=== PATIENT | male | born 1975 | race American Indian/Alaskan Native ===

== ENCOUNTER 2017-04-26 20:26 | Emergency (ER) | payer OTHER ==
[2017-04-26 20:36] VITALS: BP 158/96
[2017-04-26 21:27] LABS: Bilirubin,Urine NEG (Negative); Blood,Urine NEG (Negative); Ketones,Urine NEG (Negative); Leukocyte Esterase,Urine NEG (Negative); Mucus,Urine FEW /HPF; Nitrite,Urine NEG (Negative); Urobilinogen,Urine < 2.0 mg/dL (<2.0)
--- NOTE | 2017-04-26 23:18 | Emergency Department Report ---
ED Female HPI - General Chief complaint: Urogenital-Male Stated complaint: PENILE DISCHARGE Time Seen by Provider: 04/26/17 23:10 Source: patient Mode of arrival: Ambulatory Limitations: No Limitations - Related Data Allergies Allergy/AdvReac Type Severity Reaction Status Date / Time No Known Allergies Allergy Verified 04/26/17 20:33 ED Review of Systems ROS: Stated complaint: PENILE DISCHARGE Other details as noted in HPI ED Past Medical Hx - Past Medical History Previous Medical History?: Yes Hx Diabetes: Yes - Surgical History Past Surgical History?: No - Social History Smoking Status: Never Smoker Substance Use Type: Alcohol ED Physical Exam - General Limitations: No Limitations ED Course Vital Signs 04/26/17 20:33 Temperature 99.0 F Pulse Rate 86 Respiratory 20 Rate Blood Pressure 158/96 O2 Sat by Pulse 96 Oximetry Critical care attestation.: If time is entered above; I have spent that time in minutes in the direct care of this critically ill patient, excluding procedure time. ED Disposition Condition: Stable Referrals: PRIMARY CARE [Primary Care Provider] - 3-5 Days
--- NOTE | 2017-04-27 00:13 | Emergency Department Report ---
ED Male HPI - General Chief complaint: Urogenital-Male Stated complaint: PENILE DISCHARGE Time Seen by Provider: 04/26/17 23:10 Source: patient Mode of arrival: Ambulatory Limitations: No Limitations - History of Present Illness Initial comments: Patient here reports that he has penile discharge that is one day. He said he was having unsafe sex 2 days prior to discharge. He is discharge is yellowish and has an odor. He said it weldon when he urinated. Denies any back or abdominal pain. Denies any fever or chills. Denies any nausea or vomiting. Patient with history of diabetes. Denied any penile rash or lesions. He is requested in to be checked for gonorrhea and chlamydia and to be treated for STDs. MD Complaint: penile discharge, dysuria Onset/Timin -: days(s) Severity scale (0 -10): 0 Quality: other ( burning with urination) Worsens with: urination discharge, dysuria. denies: swelling, mass, rash, urinary retention, blood in urine, fever, nausea/vomiting, incontinence - Related Data Sexually active: Yes (unsafe sex.) Allergies Allergy/AdvReac Type Severity Reaction Status Date / Time No Known Allergies Allergy Verified 04/26/17 20:33 ED Review of Systems ROS: Stated complaint: PENILE DISCHARGE Other details as noted in HPI Comment: All other systems reviewed and negative Constitutional: denies: chills, fever ENT: denies: throat pain Respiratory: no symptoms reported Cardiovascular: denies: chest pain, palpitations, edema, syncope Gastrointestinal: denies: abdominal pain, nausea, vomiting, diarrhea Genitourinary: dysuria, discharge. denies: urgency, frequency, hematuria, testicular pain, testicular mass Musculoskeletal: denies: back pain, joint swelling, arthralgia, myalgia Skin: denies: rash Neurological: denies: headache, numbness, paresthesias, confusion, abnormal gait , vertigo ED Past Medical Hx - Past Medical History Previous Medical History?: Yes Hx Diabetes: Yes - Surgical History Past Surgical History?: No - Family History Family history: no significant - Social History Smoking Status: Never Smoker Substance Use Type: Alcohol ED Physical Exam - General Limitations: No Limitations General appearance: alert, in no apparent distress - Head Head exam: Present: atraumatic, normocephalic, normal inspection - Eye Eye exam: Present: normal appearance, PERRL, EOMI Pupils: Present: normal accommodation - ENT ENT exam: Present: normal exam, normal orophraynx, mucous membranes moist - Neck Neck exam: Present: normal inspection, full ROM. Absent: tenderness, meningismus, lymphadenopathy - Respiratory Respiratory exam: Present: normal lung sounds bilaterally. Absent: respiratory distress, chest wall tenderness - Cardiovascular Cardiovascular Exam: Present: regular rate, normal rhythm, normal heart sounds - GI/Abdominal GI/Abdominal exam: Present: soft, normal bowel sounds. Absent: distended, tenderness, guarding, rebound, rigid - Extremities Exam Extremities exam: Present: normal inspection, full ROM, normal capillary refill. Absent: tenderness, calf tenderness - Back Exam Back exam: Present: normal inspection, full ROM. Absent: tenderness, CVA tenderness (R), CVA tenderness (L), muscle spasm, paraspinal tenderness, vertebral tenderness, rash noted - Neurological Exam Neurological exam: Present: alert, oriented X3, normal gait, reflexes normal. Absent: motor sensory deficit - Psychiatric Psychiatric exam: Present: normal affect, normal mood - Skin Skin exam: Present: warm, dry, intact, normal color. Absent: rash ED Course Vital Signs 04/26/17 20:33 Temperature 99.0 F Pulse Rate 86 Respiratory 20 Rate Blood Pressure 158/96 O2 Sat by Pulse 96 Oximetry - Reevaluation(s) Reevaluation #1: 04/27/17 01:21 Patient given azithromycin 1 g by mouth, Flagyl 2 g by mouth and ceftriaxone twinges and 50 mg IM in emergency room to treat gonorrhea and chlamydia and Trichomonas. Gonorrhea and chlamydia test is pending. Urinalysis is negative for infection positive for greater than 500 glucose. ED Medical Decision Making - Lab Data Lab Results 04/26/17 Range/Units 20:42 Urine Color Yellow (Yellow) Urine Turbidity Clear (Clear) Urine pH 5.0 (5.0-7.0) Ur Specific Prim 1.025 (1.003-1.030) Urine Protein 30 mg/dl (Negative) mg/dL Urine Glucose (UA) >=500 (Negative) mg/dL Urine Ketones Neg (Negative) mg/dL Urine Blood Neg (Negative) Urine Nitrite Neg (Negative) Urine Bilirubin Neg (Negative) Urine Urobilinogen < 2.0 (<2.0) mg/dL Ur Leukocyte Esterase Neg (Negative) Urine WBC (Auto) 4.0 (0.0-6.0) /HPF Urine RBC (Auto) 5.0 (0.0-6.0) /HPF U Epithel Cells (Auto) < 1.0 (0-13.0) /HPF Urine Mucus Few /HPF Gonorrhea and chlamydia pending - Medical Decision Making D course: She had he reports penile burning and exposure to STD with discharge that smells foul. He is requested to be treated for STD and also to be tested for STD. Patient reports that he had unsafe sex 3 days ago and then he started having penile discharge. Urinalysis is negative for any urinary tract infection positive for greater than 500 units glucose and patient is a diabetic. Patient treated empirically in emergency room for Trichomonas with Flagyl 2 g by mouth, ceftriaxone 250 mg IM for gonorrhea and for chlamydia is azithromycin 1 g by mouth. I discussed with him that he should refrain from having sexual activity for the next 2 weeks and to follow-up at [facility] in 7-10 days for repeat testing. I discussed with him that he needs to refrain from drinking all all as all call when makes it Flagyl that he took for STD Anthony cause nausea and vomiting. Patient voiced understanding of discharge instructions and discharged home. Critical care attestation.: If time is entered above; I have spent that time in minutes in the direct care of this critically ill patient, excluding procedure time. ED Disposition Clinical Impression: Concern about STD in male without diagnosis, Penile discharge, Dysuria, Glucosuria Disposition: [id number] TO HOME OR SELFCARE Is pt being admited?: No Does the pt Need Aspirin: No Condition: Stable Instructions: Sexually Transmitted Diseases (ED), Safe Sex (ED) Additional Instructions: Please inform your sex partner that you have penile discharge and that you're treated in emergency room for sexually transmitted disease Please ensure that your blood sugars stay within normal range as you are spilling glucose and urine . These follow-up with your primary care physician to manage chronic diabetes please practice safe sex Go to [facility] in 7-10 days to have repeat STD testing.. He is refrain from drinking all call for the next 7 days As medication given for STD can cause nausea and vomiting You were treated for gonorrhea, chlamydia and trichomonas in emergency room. If you want to have further testing for HIV, syphilis and herpes he can get this done at the health Department. Referrals: PRIMARY CARE, [Primary Care Provider] - 3-5 Days [facility] [Outside] - 7-10 days Forms: Work/School Release Form(ED)
[2017-04-27] MEDS ORDERED: ROCEPHIN IM ONE (01:03)
[2017-04-27] MEDS ORDERED: ZITHROMAX PO ONE (01:03)
[2017-04-27] MEDS ORDERED: FLAGYL PO ONE (01:03)
[2017-04-27] MEDS ORDERED: XYLOCAINE 1% MPF 5 mL INFILTRATI ONE (01:03)
== END 2017-04-27 01:36 | disposition home or self-care (01) ==
LOC: ED 20:26
DX: R36.9 Urethral discharge, unspecified (principal); R30.0 Dysuria; E72.51 Non-ketotic hyperglycinemia; E11.9 Type 2 diabetes mellitus without complications
CPT/HCPCS: 81001; 87591; 96372; 99283; J0696